=== PATIENT | female | born 1955 | race Caucasian/White ===

== ENCOUNTER 2022-11-16 11:03 | Emergency (ER) | payer MEDICARE ==
--- NOTE | 2022-11-16 12:15 | ED ---
Extremity Problem HPI - General Chief complaint: Extremity Problem,Nontraumatic Stated complaint: poss DVT legs - sent by urgent care Time Seen by Provider: 11/16/22 12:00 Source: patient, family Mode of arrival: ambulatory Limitations: no limitations - History of Present Illness Initial comments: PT is a 67-year-old female with past medical history significant for prior DVT of lower extremity presenting and hypercholesterlemia today with 1 week of bi lateral calf pain and swelling. Since onset, patient reports pain and swelling have increased patient is not currently on any blood thinners. She also notes pressure across her whole upper body and face. However denies chest pain. Denies any recent travel. Denies history of cancer. Denies history of tobacco use. Father had a heart attack at 63 - Related Data Home Medications Medication Instructions Recorded Confirmed Atorvastatin [Lipitor] 20 mg PO HS 11/16/22 11/16/22 Divalproex ER [Depakote ER] 500 mg PO BID 11/16/22 11/16/22 Previous Rx's Medication Instructions Recorded Ibuprofen [Motrin] 600 mg PO Q8HR PRN #30 tab 11/16/22 Allergies Allergy/AdvReac Type Severity Reaction Status Date / Time Penicillins Allergy Anaphylaxis Verified 11/16/22 16:00 Review of Systems ROS Statement: Those systems with pertinent positive or pertinent negative responses have been documented in the HPI. ROS Other: All systems not noted in ROS Statement are negative. Past Medical History Past Medical History: Hyperlipidemia History of Any Multi-Drug Resistant Organisms: None Reported Past Surgical History: Breast Surgery, Ear Surgery, Hysterectomy, Orthopedic Surgery Past Psychological History: Depression Smoking Status: Former smoker Past Alcohol Use History: None Reported Past Drug Use History: None Reported General Exam Limitations: no limitations General appearance: in no apparent distress Head exam: Present: atraumatic, normocephalic Respiratory exam: Present: normal lung sounds bilaterally Cardiovascular Exam: Present: regular rate, normal rhythm Right Upper Leg exam: Present: full ROM (Strength 5/5) Lower Leg exam: Present: full ROM, swelling (1+), Homans' sign Neurovascular tendon exam: Present: no vascular compromise (DP/PT pulses 2+) Left Lower Leg exam: Present: swelling (1+), Homans' sign Neurovascular tendon exam: Present: pulse deficit (1+ DP pulse ), extremity cold to touch Neurological exam: Present: alert, oriented X3, CN II-XII intact Course Vital Signs 11/16/22 11/16/22 11/16/22 11:35 11:44 12:00 Temperature 98.0 F Pulse Rate 68 62 68 Respiratory 18 13 13 Rate Blood Pressure 145/85 123/71 O2 Sat by Pulse 100 100 100 Oximetry 11/16/22 11/16/22 11/16/22 12:30 13:00 13:30 Temperature Pulse Rate 61 59 L 66 Respiratory 22 16 22 Rate Blood Pressure 119/79 113/84 119/83 O2 Sat by Pulse 100 Oximetry 11/16/22 11/16/22 11/16/22 14:00 14:30 15:00 Temperature Pulse Rate 61 61 58 L Respiratory 20 17 20 Rate Blood Pressure 121/69 116/75 124/76 O2 Sat by Pulse 100 98 Oximetry Medical Decision Making - Medical Decision Making Was pt. sent in by a medical professional or institution (, PA, BROACHING MACHINE REPAIRER, urgent care, hospital, or [facility]...) When possible be specific @ -No Did you speak to anyone other than the patient for history (EMS, parent, family, police, friend...)? What history was obtained from this source @ -No Did you review nursing and triage notes (agree or disagree)? Why? @ -I reviewed and agree with nursing and triage notes Were old charts reviewed (outside hosp., previous admission, EMS record, old EKG, old radiological studies, urgent care reports/EKG's, [facility] records)? Report findings @ -No old charts were reviewed Differential Diagnosis (chest pain, altered mental status, abdominal pain women, abdominal pain men, vaginal bleeding, weakness, fever, dyspnea, syncope, headache, dizziness, GI bleed, back pain, seizure, CVA, palpatations, mental health, musculoskeletal)? @ -DVT, SVT, VA EKG interpreted by me (3pts min.). @ -EKG interpreted by me as above X-rays interpreted by me (1pt min.). @ -None done CT interpreted by me (1pt min.). @ -None done U/S interpreted by me (1pt. min.). @ -None done What testing was considered but not performed or refused? (CT, X-rays, U/S, labs)? Why? @ -None What meds were considered but not given or refused? Why? @ -None Did you discuss the management of the patient with other professionals (p rofessionals i.e. , PA, BROACHING MACHINE REPAIRER, lab, RT, psych nurse, healthcare social worker, catering server, teacher, field artillery officer, upper caser)? Give summary @ -No Was smoking cessation discussed for >3mins.? @ -No Was critical care preformed (if so, how long)? @ -No Were there social determinants of health that impacted care today? How? (Homelessness, low income, unemployed, alcoholism, drug addiction, transpor tation, low edu. Level, literacy, decrease access to med. care, alf, rehab)? @ -No Was there de-escalation of care discussed even if they declined (Discuss DNR or withdrawal of care, Hospice)? DNR status @ -No What co-morbidities impacted this encounter? (DM, HTN, Smoking, COPD, CAD, Cancer, CVA, ARF, Chemo, Hep., AIDS, mental health diagnosis, sleep apnea, morbid obesity)? @ -None Was patient admitted / discharged? Hospital course, mention meds given and route, prescriptions, significant lab abnormalities, going to OR and other pertinent info. @ -Discharged after given Toradol with improvement of symptoms negative Doppler ultrasound Undiagnosed new problem with uncertain prognosis? @ -No Drug Therapy requiring intensive monitoring for toxicity (Heparin, Nitro, Insulin, Cardizem)? @ -No Were any procedures done? @ -No Diagnosis/symptom? @ -Bilateral calf pain Acute, or Chronic, or Acute on Chronic? @ -Acute Uncomplicated (without systemic symptoms) or Complicated (systemic symptoms)? @ -Uncomplicated Side effects of treatment? @ -No] Exacerbation, Progression, or Severe Exacerbation? @ -[No] Poses a threat to life or bodily function? How? (Chest pain, USA, VA, pneumonia, PE, COPD, DKA, ARF, appy, cholecystitis, CVA, Diverticulitis, Homicidal, Suicidal, threat to staff... and all critical care pts) @ -[No] - Lab Data Result diagrams: 11/16/22 12:42 11/16/22 14:54 Lab Results 11/16/22 11/16/22 11/16/22 Range/Units 12:42 12:42 12:42 WBC 7.4 (3.8-10.6) k/uL RBC 4.20 (3.80-5.40) m/uL Hgb 13.2 (11.4-16.0) gm/dL Hct 38.3 (34.0-46.0) % MCV 91.2 (80.0-100.0) fL MCH 31.3 (25.0-35.0) pg MCHC 34.4 (31.0-37.0) g/dL RDW 13.0 (11.5-15.5) % Plt Count 263 (150-450) k/uL MPV 7.8 Neutrophils % 48 % Lymphocytes % 44 % Monocytes % 5 % Eosinophils % 2 % Basophils % 0 % Neutrophils # 3.6 (1.3-7.7) k/uL Lymphocytes # 3.3 (1.0-4.8) k/uL Monocytes # 0.4 (0-1.0) k/uL Eosinophils # 0.1 (0-0.7) k/uL Basophils # 0.0 (0-0.2) k/uL Sodium 138 (137-145) mmol/L Potassium 4.6 (3.5-5.1) mmol/L Chloride 101 (98-107) mmol/L Carbon Dioxide 28 (22-30) mmol/L Anion Gap 9 mmol/L BUN 24 H (7-17) mg/dL Creatinine 0.62 (0.52-1.04) mg/dL Est GFR (CKD-EPI)AfAm >90 (>60 ml/min/1.73 sqM) Est GFR (CKD-EPI)NonAf >90 (>60 ml/min/1.73 sqM) Glucose 81 (74-99) mg/dL Calcium 9.3 (8.4-10.2) mg/dL Total Bilirubin (0.2-1.3) mg/dL AST (14-36) U/L ALT (4-34) U/L Alkaline Phosphatase (38-126) U/L Troponin I (0.000-0.034) ng/mL Total Protein (6.3-8.2) g/dL Albumin (3.5-5.0) g/dL Urine Color Light Yellow Urine Appearance Clear (Clear) Urine pH 5.0 (5.0-8.0) Ur Specific [place]ac[place] 1.010 (1.001-1.035) Urine Protein Negative (Negative) Urine Glucose (UA) Negative (Negative) Urine Ketones Negative (Negative) Urine Blood Negative (Negative) Urine Nitrite Negative (Negative) Urine Bilirubin Negative (Negative) Urine Urobilinogen <2.0 (<2.0) mg/dL Ur Leukocyte Esterase Negative (Negative) 11/16/22 11/16/22 Range/Units 12:42 14:54 WBC (3.8-10.6) k/uL RBC (3.80-5.40) m/uL Hgb (11.4-16.0) gm/dL Hct (34.0-46.0) % MCV (80.0-100.0) fL MCH (25.0-35.0) pg MCHC (31.0-37.0) g/dL RDW (11.5-15.5) % Plt Count (150-450) k/uL MPV Neutrophils % % Lymphocytes % % Monocytes % % Eosinophils % % Basophils % % Neutrophils # (1.3-7.7) k/uL Lymphocytes # (1.0-4.8) k/uL Monocytes # (0-1.0) k/uL Eosinophils # (0-0.7) k/uL Basophils # (0-0.2) k/uL Sodium 137 (137-145) mmol/L Potassium 4.4 (3.5-5.1) mmol/L Chloride 99 (98-107) mmol/L Carbon Dioxide 30 (22-30) mmol/L Anion Gap 8 mmol/L BUN 22 H (7-17) mg/dL Creatinine 0.60 (0.52-1.04) mg/dL Est GFR (CKD-EPI)AfAm >90 (>60 ml/min/1.73 sqM) Est GFR (CKD-EPI)NonAf >90 (>60 ml/min/1.73 sqM) Glucose 79 (74-99) mg/dL Calcium 9.6 (8.4-10.2) mg/dL Total Bilirubin 0.5 (0.2-1.3) mg/dL AST 22 (14-36) U/L ALT 29 (4-34) U/L Alkaline Phosphatase 52 (38-126) U/L Troponin I <0.012 (0.000-0.034) ng/mL Total Protein 6.3 (6.3-8.2) g/dL Albumin 4.0 (3.5-5.0) g/dL Urine Color Urine Appearance (Clear) Urine pH (5.0-8.0) Ur Specific [place]ac[place] (1.001-1.035) Urine Protein (Negative) Urine Glucose (UA) (Negative) Urine Ketones (Negative) Urine Blood (Negative) Urine Nitrite (Negative) Urine Bilirubin (Negative) Urine Urobilinogen (<2.0) mg/dL Ur Leukocyte Esterase (Negative) - EKG Data -: EKG Interpreted by In EKG shows normal: sinus rhythm Rate: bradycardia (58) EKG Comments: EKG shows sinus bradycardia at a rate of [address] elevations or reciprocal changes NJ interval 172 QRS 86 QT/QTC 390/382 Disposition Clinical Impression: Bilateral calf pain Disposition: HOME SELF-CARE Condition: Good Additional Instructions: Please return to the Emergency Department if symptoms worsen or any other concerns. Prescriptions: Ibuprofen [Motrin] 600 mg PO Q8HR PRN #30 tab PRN Reason: Pain Is patient prescribed a controlled substance at d/c from ED?: No Referrals: Eyal Coobs MD [Primary Care Provider] - 1-2 days Time of Disposition: 16:35
[2022-11-16 13:03] LABS: Basophils % (A) 0 %; Eosinophils # (A) 0.1 k/uL (0-0.7); Eosinophils % (A) 2 %; HCT 38.3 % (34.0-46.0); HGB 13.2 gm/dL (11.4-16.0); Lymphocytes # (A) 3.3 k/uL (1.0-4.8); Lymphocytes % (A) 44 %; MCH 31.3 pg (25.0-35.0); MCHC 34.4 g/dL (31.0-37.0); MCV 91.2 fL (80.0-100.0); Mean Platelet Volume 7.8; Monocytes # (A) 0.4 k/uL (0-1.0); Monocytes % (A) 5 %; Neutrophils # (A) 3.6 k/uL (1.3-7.7); Neutrophils % (A) 48 %; Platelet Count 263 k/uL (150-450); WBC 7.4 k/uL (3.8-10.6)
[2022-11-16 13:08] LABS: Appearance,Urine Clear (Clear); Bilirubin,Urine Negative (Negative); Blood,Urine Negative (Negative); Color,Urine Light Yellow; Glucose,Urine (UA) Negative (Negative); Ketones,Urine Negative (Negative); Leukocyte Esterase,Urine Negative (Negative); Nitrite,Urine Negative (Negative); Protein,Urine Negative (Negative); Urobilinogen,Urine <2.0 mg/dL (<2.0)
--- NOTE | 2022-11-16 13:57 | US ---
EXAMINATION TYPE: US venous doppler duplex LE DATE OF EXAM: 11/16/2022 1:33 PM COMPARISON: NONE CLINICAL INDICATION: Female, 67 years old with history of Pain; bilateral leg numbness and pain, swel ling that was worse yesterday then today, no h/o dvt SIDE PERFORMED: Bilateral TECHNIQUE: The lower extremity deep venous system is examined utilizing real time linear array sonog jerod with graded compression, doppler sonography and color-flow sonography. VESSELS IMAGED: Common Femoral Vein Deep Femoral Vein Greater Saphenous Vein * Femoral Vein Popliteal Vein Small Saphenous Vein * Proximal Calf Veins (* superficial vessels) Right Leg: Negative for DVT Left Leg: Negative for DVT IMPRESSION: Grayscale, color doppler, spectral doppler imaging performed of the deep veins of the lo wer extremities. There is normal flow, compressibility, vascular waveforms.
[2022-11-16] MEDS ORDERED: KETOROLAC 15 MG/ML 1 ML VIAL IVP STA (14:15)
[2022-11-16 15:18] LABS: African American GFR (CKD) >90 (>60 ml/min/1.73 sqM); Anion Gap 9 mmol/L; Blood Urea Nitrogen 24 mg/dL (7-17); Calcium 9.3 mg/dL (8.4-10.2); Carbon Dioxide 28 mmol/L (22-30); Chloride 101 mmol/L (98-107); Glucose 81 mg/dL (74-99); Non-African American GFR(CKD) >90 (>60 ml/min/1.73 sqM); Potassium 4.6 mmol/L (3.5-5.1); Sodium 138 mmol/L (137-145)
[2022-11-16 15:45] LABS: ALT 29 U/L (4-34); AST 22 U/L (14-36); African American GFR (CKD) >90 (>60 ml/min/1.73 sqM); Alkaline Phosphatase 52 U/L (38-126); Anion Gap 8 mmol/L; Blood Urea Nitrogen 22 mg/dL (7-17); Calcium 9.6 mg/dL (8.4-10.2); Carbon Dioxide 30 mmol/L (22-30); Chloride 99 mmol/L (98-107); Glucose 79 mg/dL (74-99); Non-African American GFR(CKD) >90 (>60 ml/min/1.73 sqM); Potassium 4.4 mmol/L (3.5-5.1); Sodium 137 mmol/L (137-145); Total Bilirubin 0.5 mg/dL (0.2-1.3); Total Protein 6.3 g/dL (6.3-8.2)
[2022-11-16 16:53] VITALS: BP 125/78; PULSE 78; RESP 16; TEMP 98.6
== END 2022-11-16 16:57 | disposition home or self-care (01) ==
LOC: EC 11:03
DX: M79.661 Pain in right lower leg (principal); M79.662 Pain in left lower leg; E78.5 Hyperlipidemia, unspecified; F32.A Depression, unspecified; Z87.891 Personal history of nicotine dependence; Z79.899 Other long term (current) drug therapy; Z88.0 Allergy status to penicillin
CPT/HCPCS: 36415; 93005; 80053; 80048; 84484; 85025; 81003; 93970; 99284; 96374; J1885

== ENCOUNTER → 2023-07-05 | Outpatient (CLI) | payer MEDICARE ==
--- NOTE | 2023-07-05 13:30 | CT ---
EXAMINATION TYPE: CT brain wo con DATE OF EXAM: 07/05/2023 COMPARISON: None HISTORY: headaches, dizziness, tremors, blackouts x [address] DLP: 1177 mGycm Automated exposure control for dose reduction was used. FINDINGS: Ventricular system is midline with no evidence of acute hemorrhage or mass effect. Partially empty se lla turcica. Craniocervical junction maintained. Calvarium intact. Intracranial atherosclerotic change is seen. The orbits are symmetric. There is a s mall hypodensity within the right basal ganglia suggestive of old infarct. Hyperostosis of the calvar ium. Hypoaeration of the left mastoid air cells. 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
--- NOTE | 2023-07-06 10:00 | CA ---
Transthoracic Echo Report Name: Erum Johnston Age: 67 Gender: F : 1955 Exam Date: 07/05/2023 13:25 Exam Location: [facility] Ht (in): 67 Wt (lb): 177 Ordering Physician: Anival Kumar DO Attending/Referring Phys: Caustic Mixer Ashlie Kulkarni RDCS Procedure CPT: Indications: R51.9 HEADACHE R94.31 ABN EKG Cardiac Hx: Technical Quality: Fair Contrast 1: Total Dose (mL): Contrast 2: Total Dose (mL): MEASUREMENTS (Male / Female) Normal Values 2D ECHO LV Diastolic Diameter PLAX 3.0 cm 4.2 - 5.9 / 3.9 - 5.3 cm LV Systolic Diameter PLAX 2.2 cm IVS Diastolic Thickness 1.3 cm 0.6 - 1.0 / 0.6 - 0.9 cm LVPW Diastolic Thickness 1.3 cm 0.6 - 1.0 / 0.6 - 0.9 cm LV Relative Wall Thickness 0.9 LA Volume 27.5 cm??? 18 - 58 / 22 - 52 cm??? LA Volume Index 14.0 cm???/m??? 16 - 28 cm???/m??? M-MODE Aortic Root Diameter MM 2.9 cm LA Systolic Diameter MM 3.3 cm LA Ao Ratio MM 1.1 AV Cusp Separation MM 1.5 cm DOPPLER AV Peak Velocity 144.7 cm/s AV Peak Gradient 8.4 mmHg AV Mean Velocity 108.6 cm/s AV Mean Gradient 5.1 mmHg AV Velocity Time Integral 27.7 cm LVOT Peak Velocity 105.0 cm/s LVOT Peak Gradient 4.4 mmHg LVOT Velocity Time Integral 20.6 cm MV Area PHT 5.0 cm??? Mitral E Point Velocity 79.5 cm/s Mitral A Point Velocity 115.3 cm/s Mitral E to A Ratio 0.7 MV Deceleration Time 152.8 ms MV E' Velocity 8.1 cm/s Mitral E to MV E' Ratio 9.8 TR Peak Velocity 201.6 cm/s TR Peak Gradient 16.3 mmHg Right Ventricular Systolic Press 20.9 mmHg FINDINGS Left Ventricle Moderately increased left ventricular wall thickness. Left ventricular cavity size normal. Normal left ventricular systolic function with no obvious regional wall motion abnormalities. Left ventricular ejection fraction is estimated at 55 %. Right Ventricle Normal right ventricular size and function. Right ventricular systolic pressure within normal limits. Right Atrium Normal right atrial size. Left Atrium Normal left atrial size. Mitral Valve Structurally normal mitral valve. Mitral valve thickened. Trace mitral regurgitation. Aortic Valve Trileaflet aortic valve. No aortic valve stenosis or regurgitation. Tricuspid Valve Mild tricuspid regurgitation. Pulmonic Valve Trace pulmonic regurgitation. Pericardium No pericardial effusion. Aorta Normal size aortic root and proximal ascending aorta. CONCLUSIONS LVH with preserved systolic function Previewed by: Dr. Oneil Gonzalez MD (Electronically Signed) Final Date: 06 July 2023 09:59
== END | disposition home or self-care (01) ==
LOC: RADCTMAIN 12:51
PROVIDERS: ATTEND Family Medicine
DX: R51.9 Headache, unspecified (principal); R94.31 Abnormal electrocardiogram [ECG] [EKG]
CPT/HCPCS: 70450; 93306

== ENCOUNTER → 2023-08-31 | Outpatient (CLI) | payer MEDICARE ==
--- NOTE | 2023-08-31 19:13 | MR ---
EXAMINATION TYPE: MR brain wo con DATE OF EXAM: 08/31/2023 10:02 AM CLINICAL INDICATION:Female, 67 years old with history of I63.9 CEREBRAL INFARCTION, UNSPECIFIED; PHH, Syncope w/ positional movements, decreased left facial sensation COMPARISON: 07/05/2023. TECHNIQUE: Multi planar, multi sequence imaging was performed through the brain including: T1, T2, In version recovery, Diffusion weighted imaging, and gradient echo imaging. No gadolinium was given. FINDINGS: The spivey-white junctions, ventricular system, basal cisterns appear unremarkable. Midline structures show no abnormality. Diffusion-weighted imaging shows no evidence of restricted diffusion. The suscep tibility weighted images do not reveal any evidence for micro-hemorrhage. The bone marrow signal is within normal limits. Paranasal sinuses and mastoid air cells: No significant paranasal sinus disease. Visualized orbits: Orbital contents are intact. IMPRESSION: 1. No evidence of intracranial mass or acute/subacute infarct. Remote infarct of the right basal gang hallie suggesting prior CT is not appreciated.
--- NOTE | 2023-08-31 19:25 | MR ---
EXAMINATION TYPE: MR angio head wo/neck wo/w con DATE OF EXAM: 08/31/2023 10:28 AM CLINICAL INDICATION:Female, 67 years old with history of I63.9 CEREBRAL INFARCTION, UNSPECIFIED; PHH, Syncope w/ positional movements, decreased left facial sensation COMPARISON: 07/05/2023. Technical: MRA brain: 2D and 3-D [id number] Axial with MIP and 3-D reconstruction. Performed on a separate w orkstation. MRA neck: Multiplanar, multi-sequence imaging as well as [id number] and phase was performed extra cranial vasculature of the neck. 3-D reformatted images and maximum intensity projection reformatted images were submitted for evaluation, these are performed on a separate workstation. IV Contrast: 8 cc Gadavist Findings: Vertebral arteries: The vertebral arteries are patent. Vertebral arteries are: Codominant. Basilar artery: The basilar artery is intact. The basilar artery bifurcation is normal. Internal Carotid arteries: The cervical, petrous, cavernous and supraclinoid segments are normal. EDUARDO: Patent with no evidence of aneurysm. ACOM: Present without evidence of aneurysm. MCA: Patent with no evidence of aneurysm. COREMAKER EXPERIMENTAL: Patent with no evidence of aneurysm. PCOM: Hypoplastic bilaterally. RIGHT CAROTID SYSTEM: The common carotid artery is patent. The carotid bifurcations demonstrates no e vidence for hemodynamically significant stenosis. The internal carotid artery is patent. LEFT CAROTID SYSTEM: The common carotid artery is patent. The carotid bifurcations demonstrates no e vidence for hemodynamically significant stenosis. The internal carotid artery is patent. The origins of the great vessels and vertebral arteries appear unremarkable. The right vertebral art anthony is dominant. IMPRESSION: 1. No evidence of intracranial aneurysm or significant stenosis. 2. No evidence of significant stenosis at the carotid bifurcations. The carotid and vertebral arteri es are patent. 3. No evidence aneurysm.
== END | disposition home or self-care (01) ==
LOC: RADMRIMAIN 09:12
PROVIDERS: ATTEND Psychiatry & Neurology Neurology
DX: I63.9 Cerebral infarction, unspecified (principal); G45.0 Vertebro-basilar artery syndrome; R55 Syncope and collapse
CPT/HCPCS: 70544; 70549; 70551; A9585

== ENCOUNTER → 2023-12-12 | Outpatient (CLI) | payer MEDICARE ==
--- NOTE | 2023-12-12 07:36 | MM ---
Reason for Exam: Clinical finding. Indicated Problems: Pain of the left side (Focal) for 2 Year(s) : at excisional from 95. Patient History: Menarche at age 18. First Full-Term at age 21. Left ovary removed at age 40. Right ovary removed at age 40. Hysterectomy at age 40. Postmenopausal. Patient has history of breast feeding. 11/01/1994, Excisional Biopsy on the Left side. Risk Values: Coby 5 year model risk: 1.3%. NCI Lifetime model risk: 4.7%. Prior Study Comparison: No prior studies available for comparison. Tissue Density: The breasts are heterogeneously dense, which may obscure small masses. Findings: Analyzed By CAD. There is nodularity seen within the upper lobe of both breasts. Ultrasound is recommended. Benign appearing calcifications present. Overall Assessment: Incomplete: need additional imaging evaluation, BI-RAD 0 Management: Diagnostic Breast Ultrasound of both breasts. . Results were given to the patient verbally at the time of exam. Patient should continue monthly self-breast exams. A clinical breast exam by your physician is recommended on an annual basis. This exam should not preclude additional follow-up of suspicious palpable abnormalities. Note on Coby scores and lifetime risk: 1. A Coby score greater than 3% is considered moderate risk. If this is the case, consider specialist referral to assess eligibility for a risk reducing agent. 2. If overall lifetime risk for the development of breast cancer is 20% or higher, the patient may qualify for future screening with alternating mammogram and breast MRI. Electronically signed and approved by: Vern Luke M.D. Radiologis
--- NOTE | 2023-12-12 08:01 | USB ---
Reason for Exam: Additional evaluation requested from abnormal screening. Patient History: Menarche at age 18. First Full-Term at age 21. Left ovary removed at age 40. Right ovary removed at age 40. Hysterectomy at age 40. Postmenopausal. Patient has history of breast feeding. 11/01/1994, Excisional Biopsy on the Left side. Risk Values: Coby 5 year model risk: 1.3%. NCI Lifetime model risk: 4.7%. Technique: Method: Targeted. Findings: The upper section of the breast of both breasts, the axilla of both breasts and the retroareolar of both breasts were scanned. Well-circumscribed hypoechoic lesions right posterior nipple measuring 6 mm and 4 mm respectively which demonstrate internal echoes. It is likely small complex cyst. Six-month follow-up recommended. Ultrasound of the left breast demonstrates a too small to characterize probable cyst measuring 0.4 x 0.4 cm. No solid masses identified within either breast. Overall Assessment: Probably benign, BI-RAD 3 Management: Diagnostic Breast Ultrasound of both breasts in 6 months. A clinical breast exam by your physician is recommended on an annual basis and results should be correlated with mammographic findings. This exam should not preclude additional follow-up of suspicious palpable abnormalities. Results were given to the patient verbally at the time of exam. Electronically signed and approved by: Vern Luke M.D. Radiologis
== END | disposition home or self-care (01) ==
LOC: RADMAMWWP 06:50
PROVIDERS: ATTEND Family Medicine
DX: R92.333 Mammographic heterogeneous density, bilateral breasts (principal); N64.4 Mastodynia; Z78.0 Asymptomatic menopausal state
CPT/HCPCS: 77062; 77066

== ENCOUNTER → 2023-12-30 | Outpatient (CLI) | payer MEDICARE ==
--- NOTE | 2024-01-01 16:22 | BD ---
EXAMINATION TYPE: Axial Bone Density DATE OF EXAM: 12/30/2023 CLINICAL HISTORY: 68 years old Female. ICD-10 CODE: Z78.0 Asymptomatic menopausal Height: 65.5" Weight: 186lbs FRAX RISK QUESTIONS: Alcohol (3 or more units per day): No Family History (Parent hip fracture): No Glucocorticoids (More than 3mos): No (Ex: prednisone, prednisolone, methylprednisolone, dexamethasone, and hydrocortisone). History of Fracture in Adulthood: No Secondary Osteoporosis: 1. Type 1 Diabetes: No 2. Hyperthyroidism: No 3. Menopause before 45: Yes, 40 4. Malnutrition: No 5. Chronic liver disease: No Rheumatoid Arthritis: No Current Tobacco Use: Yes RISK FACTORS HISTORY OF: Hip Fracture (Right/Left): No Spine Fracture: No History of Wrist Fracture: No Surgery to Spine/Hip(right/left)/Wrist (right/left): No MEDICATIONS: Thyroid Medications: No Osteoporosis Medications: No EXAM MEASUREMENTS: Bone mineral densitometry was performed using the Jiglu System. Bone mineral density as measured about the Lumbar spine is: ----- L1-L4(G/cm2): 1.270 T Score Values are as follows: ----- L1: -0.5 ----- L2: -0.3 ----- L3: 0.6 ----- L4: 2.6 ----- L1-L4: 0.7 Z Score Values are as follows: ----- L1: 0.5 ----- L2: 0.7 ----- L3: 1.5 ----- L4: 3.6 ----- L1-L4: 1.7 Baseline @MPH Bone mineral density about the R hip (g/cm2): 0.914 Bone mineral density about the L hip (g/cm2): 0.886 T Score values are as follows: -----R Neck: -1.1 -----L Neck: -1.2 -----R Total: -0.7 -----L Total: -1.0 Z Score values are as follows: -----R Neck: 0.0 -----L Neck: -0.1 -----R Total: 0.0 -----L Total: -0.2 Baseline @MPH FRAX%s: The graph provided illustrates a 8.4% chance for a major osteoporotic fx and a 1.3% chance fo r the hips probability for fx in 10 years time. IMPRESSION: Osteopenia (T Score between -2.5 and -1). There is slightly increased risk of fracture and the patient may be considered for treatment. Re-Screen 2-5 years. NOTE: T-SCORE=SD OF THE YOUNG ADULT MEAN.
== END | disposition home or self-care (01) ==
LOC: RADBDWWP 10:32
PROVIDERS: ATTEND Family Medicine
DX: M85.88 Other specified disorders of bone density and structure, other site (principal); Z78.0 Asymptomatic menopausal state; Z72.0 Tobacco use
CPT/HCPCS: 77080

== ENCOUNTER → 2024-03-13 | Outpatient (CLI) | payer MEDICARE ==
--- NOTE | 2024-03-13 13:55 | US ---
EXAMINATION TYPE: US venous doppler duplex LE RT DATE OF EXAM: 03/13/2024 12:47 PM COMPARISON: US 2022 CLINICAL INDICATION: Female, 68 years old with history of R60.0 RLE LOCALIZED EDEMA; Right leg pain a nd bruising following fall 8 days ago SIDE PERFORMED: Right TECHNIQUE: The lower extremity deep venous system is examined utilizing real time linear array sonog jerod with graded compression, doppler sonography and color-flow sonography. VESSELS IMAGED: Common Femoral Vein Deep Femoral Vein Greater Saphenous Vein * Femoral Vein Popliteal Vein Small Saphenous Vein * Proximal Calf Veins (* superficial vessels) Right Leg: Appears negative for DVT IMPRESSION: 1. Right lower extremity ultrasound negative for deep venous thrombosis. [facility], , 03/13/2024 1:53 PM
== END | disposition home or self-care (01) ==
LOC: RADUSWWP 12:19
PROVIDERS: ATTEND Family Medicine
DX: R60.0 Localized edema (principal)

== ENCOUNTER → 2024-03-13 | Outpatient (CLI) | payer MEDICARE ==
--- NOTE | 2024-03-13 13:51 | XR ---
EXAMINATION TYPE: XR femur RT DATE OF EXAM: 03/13/2024 COMPARISON: NONE HISTORY: Pain TECHNIQUE: 4 views right femur FINDINGS: Generalized demineralization. Mild SI joint are uropathy and hip arthropathy. Vascular calc ifications. There is mild tricompartment joint space narrowing. No acute fracture or dislocation. IMPRESSION: Acute fracture or dislocation. [facility], , 03/13/2024 1:48 PM
--- NOTE | 2024-03-13 13:52 | XR ---
EXAMINATION TYPE: XR Hip Limited RT DATE OF EXAM: 03/13/2024 COMPARISON: NONE HISTORY: Pain TECHNIQUE: 2 views submitted FINDINGS: Generalized demineralization. Mild SI joint are uropathy and hip arthropathy. Vascular calcifications . No acute fracture or dislocation. IMPRESSION: 1. No definite acute fracture. If there is difficulty with weightbearing then would recommend CT scan . [facility], , 03/13/2024 1:50 PM
--- NOTE | 2024-03-13 13:53 | XR ---
EXAMINATION TYPE: XR knee complete RT DATE OF EXAM: 03/13/2024 COMPARISON: NONE HISTORY: Pain TECHNIQUE: Three views are submitted. FINDINGS: Demineralization. There is mild narrowing of the knee joint medial compartment and patellofemoral com partment.. Osseous structures are intact. No acute fracture seen. Well corticated soft tissue ossi fication in the area of Hoffa's fat pad likely is chronic. IMPRESSION: 1. No acute fracture or dislocation. [facility], , 03/13/2024 1:51 PM
--- NOTE | 2024-03-13 13:56 | XR ---
EXAMINATION TYPE: XR tibia fibula RT DATE OF EXAM: 03/13/2024 COMPARISON: NONE HISTORY: Pain TECHNIQUE: Two views are submitted. FINDINGS: The osseous structures are intact. Mild tricompartment space narrowing. Mild generalized demineraliza tion. Tiny well-corticated density along Hoffa's fat pad likely is chronic. Small bony density in th e joint space could represent a loose body. IMPRESSION: 1. No acute fracture. Small bony density and the infrapatellar region likely is chronic. [facility] MRI as clinically warranted. [facility], , 03/13/2024 1:54 PM
== END | disposition home or self-care (01) ==
LOC: RADXRMAIN 13:10
PROVIDERS: ATTEND Family Medicine
DX: M79.604 Pain in right leg
CPT/HCPCS: 73501